=== PATIENT | male | born 1945 | race Two or more races ===

== ENCOUNTER 2025-02-07 06:58 | Outpatient (RCR) | payer MEDICARE, SELFPAY ==
--- NOTE | 2024-09-27 14:47 | CR1_ITS ---
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 Electronically Signed On 10-01-2024 12:22:46 EDT by Rudolph Allison
--- NOTE | 2024-10-02 08:40 | CR1_ITS ---
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 Electronically Signed On 10-03-2024 7:10:41 EDT by Rudolph Allison
--- NOTE | 2024-10-24 13:24 | CR1_ITS ---
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 Interpretive Statements Patient may continue cardiac rehab as outlined in the treatment plan. Electronically Signed On 11-16-2024 10:13:03 EDT by TAYO OLIVERA M.D.
--- NOTE | 2024-11-21 06:56 | CR1_ITS ---
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 Order Number: [id number] Reading MD: Erick Jones Interpretive Statements Session Date: Electronically Signed On 12-07-2024 13:27:52 EDT by Erick Jones
--- NOTE | 2024-12-20 08:08 | CR1_ITS ---
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 Interpretive Statements Patient may continue cardiac rehab as outlined in the treatment plan. Electronically Signed On 12-26-2024 18:01:26 EDT by TAYO OLIVERA M.D.
--- NOTE | 2025-01-21 07:26 | CR1_ITS ---
The 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 Order Number: [id number] Dipti MD: TAYO OLIVERA M.D. Interpretive Statements Patient may continue cardiac rehab as outlined in the treatment plan. Electronically Signed On 01-21-2025 13:17:32 EDT by TAYO OLIVERA M.D.
--- NOTE | 2025-02-07 07:24 | CR1_ITS ---
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 Order Number: [id number] Dipti MD: TAYO OLIVERA M.D. Interpretive Statements Patient has completed rehab program and have noted outcomes. Electronically Signed On 02-07-2025 13:21:18 EDT by TAYO OLIVERA M.D.
== END 2025-02-07 07:24 | disposition home or self-care (01) ==
LOC: CR 06:58
PROVIDERS: Visit Provider Internal Medicine Cardiovascular Disease
DX: I21.9 Acute myocardial infarction, unspecified (principal); Z98.61 Coronary angioplasty status; I21.4 Non-ST elevation (NSTEMI) myocardial infarction; E78.2 Mixed hyperlipidemia; I10 Essential (primary) hypertension; Z68.36 Body mass index [BMI] 36.0-36.9, adult
CPT/HCPCS: 93798